=== PATIENT | male | born 1935 | race Caucasian/White ===

== ENCOUNTER 2018-06-17 13:10 | Emergency (ER) | payer MEDICARE, OTHER, SELFPAY ==
[2018-06-17 13:40] VITALS: BP 117/51; PULSE 54; RESP 18; TEMP 37; O2SAT 97
--- NOTE | 2018-06-17 14:00 | W.ED.GENAD ---
Discharge Plan Disposition Patient Disposition: HOME Condition: Stable Discharge Details Chief Complaint: Orthopedic Clinical Impression: Cellulitis of foot, left Primary Care Provider: Osvaldo Coles ED Provider: Vicente Pierce Rogers Meds and New Rx's Prescriptions: New clindamycin HCl 150 mg capsule 450 mg PO TID 7 Days Qty: 63 RF: 0 Continue ALLERPLEX 1 tab PO DAILY RF: 0 ascorbic acid (vitamin C) 1,000 MG tablet 1 tab PO DAILY RF: 0 vitamin B complex 1 EACH capsule 2 ea PO DAILY RF: 0 CHOLOCOL 1 tab PO DAILY RF: 0 CO Q ZYME 30 1 tab PO DAILY RF: 0 PALMETTO-PLUS 1 tab PO DAILY RF: 0 PNEUMA ZYME 1 tab PO DAILY RF: 0 bilberry (vaccinium myrtillus) [bilberry] 500 MG capsule 2 tab PO DAILY RF: 0 Ca carb-Ca gluc-Mg ox-Mg gluco [Calcium Magnesium] 1 EACH tablet 1 ea PO DAILY RF: 0 total male 1 tab PO DAILY RF: 0 losartan 100 MG tablet 100 mg PO DAILY Qty: 90 RF: 4 tamsulosin 0.4 MG capsule 0.4 mg PO DAILY Qty: 30 RF: 11 finasteride 5 MG tablet 5 mg PO DAILY Qty: 30 RF: 2 spironolactone 50 MG tablet 50 mg PO DAILY Qty: 90 RF: 3 Discharge Instructions Additional Instructions: Follow up with your primary care provider in 1-2 weeks return to the emergency department for fevers or severe worsening of pain you can take 1000mg tylenol and 600mg ibuprofen every 6 hours for pain Discharge Data Discharge Physician: Vicente Pierce Medical Decision Making [facility] Narrative Medical decision making narrative: 83 yo male comes in with intermittent pain in his left foot off and on for a few years. He states the pain lasts a few days then goes away, has never had it evaluated. He denies any fevers or chills or trauma or falls. He has a 2x3cm area of erythema that is not tender or significalty warm to touch on the suerprior mid foot. Based on his exam and hx I suspect he likely has had gout, advised nsaids and f/u with pcp, but given his erythema which he states he has never had before will start abx to cover for a cellulitis. Has full rom of the joints so odubt septic joints. no night sweats or systemic symptoms to suggest osteo. no falls or trauma so doubt fracture/dislocation Differential Diagnosis gout, cellulitis, arthritis HPI - General Adult General Mode of arrival: wheelchair. Date/Time Provider Initiated Documentation: 06/17/18 13:46. Limitations to Documentation: no limitations. Information obtained by: patient. History of Present Illness 83 year old M presents to the emergency department with the chief complaint of left foot pain, described as moderate, with intensity rated at 5. Quality is described as aching, and is localized to the left. Patient reports no radiation. Patient started experiencing this year(s) (5) and it has been intermittent. No relieving factors improve symptom(s), No exacerbating factors reported . Patient notes no other symptoms.. Patient did receive the following treatments prior to arrival, none Related Data Home Medications Medication Instructions Recorded Confirmed Allerplex 1 tab PO DAILY 04/26/13 Cholocol 1 tab PO DAILY 04/26/13 Co Q Zyme 30 1 tab PO DAILY 04/26/13 Chocorua-Plus 1 tab PO DAILY 04/26/13 Pneuma Zyme 1 tab PO DAILY 04/26/13 ascorbic acid (vitamin C) 1 tab PO DAILY 04/26/13 vitamin B complex 2 ea PO DAILY 04/26/13 Ca carb-Ca gluc-Mg ox-Mg gluco 1 ea PO DAILY 06/04/14 [Calcium Magnesium] Total Male 1 tab PO DAILY 06/04/14 bilberry (vaccinium myrtillus) 2 tab PO DAILY 06/04/14 [bilberry] Previous Rx's Medication Instructions Recorded clindamycin HCl 450 mg PO TID 7 Days #63 cap 06/17/18 Allergies Allergy/AdvReac Type Severity Reaction Status Date / Time terazosin Allergy Severe SOB; HEAD Unverified 06/17/18 13:42 CONGESTION hydrochlorothiazide Allergy Mild SKIN RASH Unverified 06/17/18 13:42 Penicillins Allergy Mild HIVES Unverified 06/17/18 13:42 triamterene Allergy Mild SKIN RASH Unverified 06/17/18 13:42 omeprazole AdvReac Severe FELT Unverified 06/17/18 13:42 STRANGE General Stated Complaint: Orthopedic HELLEN: 4 Review of Systems Review of Systems All systems reviewed & are unremarkable except as noted in HPI and below Constitutional Denies chills, Denies fever(s) and Denies weakness Eyes Patient Denies loss of vision ENT Denies change in voice Cardiovascular Denies chest pain and Denies dyspnea Respiratory Denies dyspnea Gastrointestinal Denies abdominal pain, Denies nausea and Denies vomiting Genitourinary Denies dysuria Musculoskeletal Denies joint swelling Integumentary/Breasts Reports rash Neurologic Denies loss of vision and Denies weakness Psychiatric Denies depression Endocrine Denies cold intolerance and Denies heat intolerance Allergic/Immunologic Reports urticaria PFSH Family History Mother Essential hypertension Heart disease Multiple sclerosis Father Essential hypertension Heart disease Sister Essential hypertension Thyroid disease Brother Heart disease Neoplasm Brother Essential hypertension COPD (chronic obstructive pulmonary disease) Thyroid disease Smoker Grandfather No problems noted. Grandfather No problems noted. Grandmother No problems noted. Grandmother No problems noted. Brother Heart disease Myocardial infarction Smoker Sister Heart disease Cerebrovascular accident Sister Heart disease Smoker Son Hyperlipidemia Son Diabetes Daughter No problems noted. Daughter Thyroid disease Daughter No problems noted. Social History Smoking/Tobacco Use Status: Never Surgical History Cholecystectomy (~08/2011) Open Carpal Tunnel release Rotator Cuff Repair (~2009) Tonsillectomy and adenoidectomy Exam Const General: no acute distress Orientation: alert HENMT Head: normal to inspection Ears: external ears normal General nose exam: external nose normal Mouth: moist mucous membranes Eyes General: appearance normal, both eyes and all related structures Neck Neck: normal visual inspection Resp Effort & Inspection: normal respiratory effort and able to speak in complete sentences Cardio Rate: regular rate Skin General skin exam: no rashes or lesions noted Neuro General: alert and oriented x3 Extrem General: full ROM, normal capillary refill and other (left superior mid foot has mild erythema with no significant warmth or tenderness, intact sensation, 2+ dp/pt pulses, full rom of the ankle and no leg swelling or calf pain) Psych Mental Status: mental status grossly normal Course Vital Signs Temperature 37 C 06/17/18 13:40 Pulse 54 L 06/17/18 13:40 Respiratory Rate 06/17/18 13:40 Blood Pressure 117/51 L 06/17/18 13:40 Pulse Oximetry 97 06/17/18 13:40 Temperature 37 C 06/17/18 13:40 Pulse 54 L 06/17/18 13:40 Respiratory Rate 18 09/10/18 13:40 Blood Pressure 117/51 L 06/17/18 13:40 Pulse Oximetry 97 06/17/18 13:40
--- NOTE | 2018-06-17 14:03 | ED.GENADUL_ITS ---
Discharge Plan Disposition Patient Disposition: HOME Condition: Stable Discharge Details Chief Complaint: Orthopedic Clinical Impression: Cellulitis of foot, left Primary Care Provider: Osvaldo Coles ED Provider: Vicente Pierce [place] Meds and New Rx's Prescriptions: New clindamycin HCl 150 mg capsule 450 mg PO TID 7 Days Qty: 63 RF: 0 Continue ALLERPLEX 1 tab PO DAILY RF: 0 ascorbic acid (vitamin C) 1,000 MG tablet 1 tab PO DAILY RF: 0 vitamin B complex 1 EACH capsule 2 ea PO DAILY RF: 0 CHOLOCOL 1 tab PO DAILY RF: 0 CO Q ZYME 30 1 tab PO DAILY RF: 0 PALMETTO-PLUS 1 tab PO DAILY RF: 0 PNEUMA ZYME 1 tab PO DAILY RF: 0 bilberry (vaccinium myrtillus) [bilberry] 500 MG capsule 2 tab PO DAILY RF: 0 Ca carb-Ca gluc-Mg ox-Mg gluco [Calcium Magnesium] 1 EACH tablet 1 ea PO DAILY RF: 0 total male 1 tab PO DAILY RF: 0 losartan 100 MG tablet 100 mg PO DAILY Qty: 90 RF: 4 tamsulosin 0.4 MG capsule 0.4 mg PO DAILY Qty: 30 RF: 11 finasteride 5 MG tablet 5 mg PO DAILY Qty: 30 RF: 2 spironolactone 50 MG tablet 50 mg PO DAILY Qty: 90 RF: 3 Discharge Instructions Additional Instructions: Follow up with your primary care provider in 1-2 weeks return to the emergency department for fevers or severe worsening of pain you can take 1000mg tylenol and 600mg ibuprofen every 6 hours for pain Discharge Data Discharge Physician: Vicente Pierce Medical Decision Making [facility] Narrative Medical decision making narrative: 83 yo male comes in with intermittent pain in his left foot off and on for a few years. He states the pain lasts a few days then goes away, has never had it evaluated. He denies any fevers or chills or trauma or falls. He has a 2x3cm area of erythema that is not tender or significalty warm to touch on the suerprior mid foot. Based on his exam and hx I suspect he likely has had gout, advised nsaids and f/u with pcp, but given his erythema which he states he has never had before will start abx to cover for a cellulitis. Has full rom of the joints so odubt septic joints. no night sweats or systemic symptoms to suggest osteo. no falls or trauma so doubt fracture/dislocation Differential Diagnosis gout, cellulitis, arthritis HPI - General Adult General Mode of arrival: wheelchair . Date/Time Provider Initiated Documentation: 06/17/18 13:46 . Limitations to Documentation: no limitations . Information obtained by: patient . History of Present Illness 83 year old M presents to the emergency department with the chief complaint of left foot pain, described as moderate, with intensity rated at 5. Quality is described as aching, and is localized to the left. Patient reports no radiation. Patient started experiencing this year(s) (5) and it has been intermittent. No relieving factors improve symptom(s), No exacerbating factors reported . Patient notes no other symptoms.. Patient did receive the following treatments prior to arrival, none Related Data Home Medications Medication Instructions Recorded Confirmed Allerplex 1 tab PO DAILY 04/26/13 Cholocol 1 tab PO DAILY 04/26/13 Co Q Zyme 30 1 tab PO DAILY 04/26/13 Myra-Plus 1 tab PO DAILY 04/26/13 Pneuma Zyme 1 tab PO DAILY 04/26/13 ascorbic acid (vitamin C) 1 tab PO DAILY 04/26/13 vitamin B complex 2 ea PO DAILY 04/26/13 Ca carb-Ca gluc-Mg ox-Mg gluco 1 ea PO DAILY 06/04/14 [Calcium Magnesium] Total Male 1 tab PO DAILY 06/04/14 bilberry (vaccinium myrtillus) 2 tab PO DAILY 06/04/14 [bilberry] Previous Rx's Medication Instructions Recorded clindamycin HCl 450 mg PO TID 7 Days #63 cap 06/17/18 Allergies Allergy/AdvReac Type Severity Reaction Status Date / Time terazosin Allergy Severe SOB; HEAD Unverified 06/17/18 13:42 CONGESTION hydrochlorothiazide Allergy Mild SKIN RASH Unverified 06/17/18 13:42 Penicillins Allergy Mild HIVES Unverified 06/17/18 13:42 triamterene Allergy Mild SKIN RASH Unverified 06/17/18 13:42 omeprazole AdvReac Severe FELT Unverified 06/17/18 13:42 STRANGE General Stated Complaint: Orthopedic HELLEN: 4 Review of Systems Review of Systems All systems reviewed & are unremarkable except as noted in HPI and below Constitutional Denies chills, Denies fever(s) and Denies weakness Eyes Patient Denies loss of vision ENT Denies change in voice Cardiovascular Denies chest pain and Denies dyspnea Respiratory Denies dyspnea Gastrointestinal Denies abdominal pain, Denies nausea and Denies vomiting Genitourinary Denies dysuria Musculoskeletal Denies joint swelling Integumentary/Breasts Reports rash Neurologic Denies loss of vision and Denies weakness Psychiatric Denies depression Endocrine Denies cold intolerance and Denies heat intolerance Allergic/Immunologic Reports urticaria PFSH Family History Mother Essential hypertension Heart disease Multiple sclerosis Father Essential hypertension Heart disease Sister Essential hypertension Thyroid disease Brother Heart disease Neoplasm Brother Essential hypertension COPD (chronic obstructive pulmonary disease) Thyroid disease Smoker Grandfather No problems noted. Grandfather No problems noted. Grandmother No problems noted. Grandmother No problems noted. Brother Heart disease Myocardial infarction Smoker Sister Heart disease Cerebrovascular accident Sister Heart disease Smoker Son Hyperlipidemia Son Diabetes Daughter No problems noted. Daughter Thyroid disease Daughter No problems noted. Social History Smoking/Tobacco Use Status: Never Surgical History Cholecystectomy (~08/2011) Open Carpal Tunnel release Rotator Cuff Repair (~2009) Tonsillectomy and adenoidectomy Exam Const General: no acute distress Orientation: alert HENMT Head: normal to inspection Ears: external ears normal General nose exam: external nose normal Mouth: moist mucous membranes Eyes General: appearance normal, both eyes and all related structures Neck Neck: normal visual inspection Resp Effort & Inspection: normal respiratory effort and able to speak in complete sentences Cardio Rate: regular rate Skin General skin exam: no rashes or lesions noted Neuro General: alert and oriented x3 Extrem General: full ROM, normal capillary refill and other (left superior mid foot has mild erythema with no significant warmth or tenderness, intact sensation, 2 + dp/pt pulses, full rom of the ankle and no leg swelling or calf pain) Psych Mental Status: mental status grossly normal Course Vital Signs Temperature 37 C 06/17/18 13:40 Pulse 54 L 06/17/18 13:40 Respiratory Rate 06/17/18 13:40 Blood Pressure 117/51 L 06/17/18 13:40 Pulse Oximetry 97 06/17/18 13:40 Temperature 37 C 06/17/18 13:40 Pulse 54 L 06/17/18 13:40 Respiratory Rate 18 09/10/18 13:40 Blood Pressure 117/51 L 06/17/18 13:40 Pulse Oximetry 97 06/17/18 13:40
[2018-06-17 14:24] VITALS: BP 117/51; PULSE 54; RESP 18; TEMP 37; O2SAT 97
--- NOTE | 2018-06-18 10:20 | PDOC.ERCMPRO ---
Care Management Progress Note 06/18/18-Pt seen on 06/17/18 for Left foot cellulitis by Dr. Sarabjit Pierce. F/U request within 1-2 weeks faxed to [facility] as Dr. Sarabjit Coles is Pt.'s PCP.
== END 2018-06-17 15:16 | disposition home or self-care (01) ==
LOC: ER 14:23
PROVIDERS: Emergency Provider Emergency Medicine; PCP Family Medicine
DX: L03.116 Cellulitis of left lower limb (principal)
CPT/HCPCS: 99283

== ENCOUNTER 2018-09-06 15:17 | Outpatient (CLI) | payer MEDICARE, SELFPAY ==
--- NOTE | 2018-09-06 13:34 | DI.RAD_ITS ---
SYMPTOMS/DIAGNOSIS: PAIN LT SHOULDER, M25.512 LEFT SHOULDER: Five views were obtained. There is mild hypertrophic degenerative change of the acromioclavicular and glenohumeral joints. No other significant bony or soft tissue abnormality seen. The bones appear somewhat demineralized.
== END 2018-09-06 15:37 ==
PROVIDERS: PCP Family Medicine; Visit Provider Family Medicine
DX: M25.512 Pain in left shoulder (principal); M19.012 Primary osteoarthritis, left shoulder
CPT/HCPCS: 73030

== ENCOUNTER 2018-12-26 02:28 | Outpatient (CLI) | payer MEDICARE, SELFPAY ==
[2018-12-26 12:38] LABS: CREATININE 1.04 mg/dL (0.70-1.30); Potassium 4.4 mmol/L (3.5-5.1)
[2018-12-26 12:45] LABS: HCT 45.8 % (40.0-50.0); HGB 14.4 g/dL (13.5-17.5); Mean Corp. HGB Concentration 31.4 g/dL (32.0-36.0); Mean Corpuscular Hemoglobin 31.4 pg (27.0-33.0); Mean Corpuscular Volume 99.8 fL (80-95); Mean Platelet Volume 11.1 fL (8.0-11.0); Platelet Count 143 x1000/uL (130-400); RBC 4.59 m/cumm (4.50-6.00); RBC Distribution Width 14.5 % (11.8-14.1)
== END 2018-12-26 02:48 ==
PROVIDERS: PCP Family Medicine; Visit Provider Family Medicine
DX: I10 Essential (primary) hypertension (principal); R53.83 Other fatigue
CPT/HCPCS: 36415; 85027; 82565; 84132

== ENCOUNTER 2019-06-30 10:49 | Outpatient (CLI) | payer MEDICARE, SELFPAY ==
--- NOTE | 2019-06-30 11:17 | DI.RAD_ITS ---
EXAM: XR HIP PELVIS ADULT BL INDICATION: renae hip pain/low back pain, M25.551, M25.552. COMPARISON: LEFT HIP COMPLETE from 10/16/2012 TECHNIQUE: 2D digital imaging was performed. FINDINGS: The bony structures are normally mineralized. There is slight bilateral narrowing of the hip joint, minimal periarticular hypertrophic spurring is demonstrated. There is no evidence of a fracture or di slocation.
== END 2019-06-30 11:09 ==
PROVIDERS: PCP Family Medicine; Visit Provider Family Medicine
DX: M25.551 Pain in right hip (principal); M25.552 Pain in left hip
CPT/HCPCS: 73521

== ENCOUNTER → 2019-10-06 12:52 | Outpatient (BNVA) | payer MEDICARE, SELFPAY | PROVIDERS: PCP Family Medicine; Referring Provider Family Medicine; Visit Provider Nurse Practitioner Gerontology | DX: N40.1 Benign prostatic hyperplasia with lower urinary tract symptoms (principal); N32.81 Overactive bladder; R35.0 Frequency of micturition; R31.29 Other microscopic hematuria; I10 Essential (primary) hypertension | CPT/HCPCS: 81003; 99204; 99215 ==

== ENCOUNTER 2019-10-06 15:30 | Outpatient (REF) | payer MEDICARE, SELFPAY ==
[2019-10-06 18:51] LABS: Bilirubin Negative (Negative); Blood Trace-lysed (Negative); Clarity Clear (Clear); Glucose Negative (Negative); Ketones Negative (Negative); Leukocyte Esterase Negative (Negative); Nitrite Negative (Negative); Urobilinogen 0.2 EU/dL (Up TO 0.2)
[2019-10-06 19:21] LABS: Bacteria Negative HPF (Negative); C & S Indicated? No; Crystals Negative HPF (Negative); Epithelial Cells Negative HPF (Negative); Mucus Negative (Negative); WBC Negative HPF (0-5)
== END 2019-10-06 15:50 ==
LOC: LBN 15:30
PROVIDERS: PCP Family Medicine; Visit Provider Nurse Practitioner Gerontology
DX: R35.0 Frequency of micturition (principal)
CPT/HCPCS: 81003; 81015

== ENCOUNTER 2019-10-30 01:40 | Outpatient (CLI) | payer MEDICARE, SELFPAY ==
[2019-10-30 13:02] LABS: CREATININE 0.96 mg/dL (0.70-1.30)
--- NOTE | 2019-10-30 13:25 | DI.CT_ITS ---
EXAM: CT ABDOMEN AND PELVIS WO/W CLINICAL HISTORY: MICROSCOPIC HEMATURIA R31.29. TECHNIQUE: Imaging Protocol: Axial computed tomography images with coronal and sagittal reformatted images were created and reviewed CONTRAST MATERIAL: Intravenous: Omnipaque 350 Contrast volume:100 mL contrast route:IV - Oral:No COMPARISON: ABD PELVIS WO CONTRAST from 09/07/2011 FINDINGS: On the noncontrast examination, there is no evidence of nephrolithiasis, ureterolithiasis or hydronep hrosis. The lung bases are clear. Post contrast images were then obtained. The liver is normal in size. There are cysts seen in the li maik. There is a peripherally enhancing lesion seen in the region of the caudate lobe. It shows prog ressive enhancement on the delayed images. It is most suggestive of a hepatic hemangioma. No suspic ious hepatic masses are seen. Patient is status post cholecystectomy. There is a fluid attenuation lesion in the gallbladder fossa , which appears to communicate with the common bile duct. It contains calcifications. This is suspi cious for choledocholithiasis. There is no biliary ductal dilatation. Pancreas, spleen and adrenal glands are unremarkable. The kidneys show normal and symmetric enhancement. There are bilateral renal cysts. No solid renal masses are present. The abdominal aorta is of normal caliber. There is mild atherosclerosis present. Incidental note is made of a retroaortic left renal vein. Urinary bladder is intact. The prostate gland is enlarged and impinges upon the base of the urinary bladder. There is diverticulosis of the colon but no evidence of acute diverticulitis. No evidence of bowel o bstruction is present. No evidence of an acute appendicitis is seen. No inflammatory process is pre sent. Incidental note is made of a diverticulum arising from the 2nd portion of the duodenum. No significant abdominal or pelvic adenopathy, ascites or pneumoperitoneum is present. Moderately severe degenerative changes are present in the spine. Delayed images through the urinary collecting system were performed. There is no dilatation of the r enal collecting system. No filling defects are present. No filling defects are seen in the urinary bladder. IMPRESSION: 1. No evidence of nephrolithiasis or hydronephrosis. No evidence of a renal mass. 2. Enlarged prostate gland impinging upon the base of the urinary bladder. 3. Status post cholecystectomy. Fluid attenuation collection in the gallbladder fossa, which appears to communicate with the bile ducts. There are calcifications internally. The findings are suspicio us for choledocholithiasis. There is no biliary ductal dilatation. 4. Peripherally enhancing lesion in the caudate lobe most suggestive of a hepatic hemangioma. 5. Colonic diverticulosis but no evidence of acute diverticulitis. DATA REPOSITORY: All CT scans at this facility are submitted to the National Radiology Data Registry (NRDR) Dose Index Registry (DIR) with the [employer] [place] [employer] (A[employer]). RADIATION OPTIMIZATION: All CT scans at this facility use at least one of these dose optimization te chniques: automated exposure control; mA and/or kV adjustment per patient size (includes targeted exa ms where dose is matched to clinical indication); or iterative reconstruction.
[2019-10-30] MEDS: Omnipaque 350 MG/ML 100 ML BTL IJ (13:41)
[2019-10-30] MEDS: Normal Saline - Diluent 50 ML VIAL IV ×2 (13:43)
== END 2019-10-30 02:00 ==
PROVIDERS: PCP Family Medicine; Visit Provider Nurse Practitioner Gerontology
DX: R31.29 Other microscopic hematuria (principal); K76.89 Other specified diseases of liver; D18.03 Hemangioma of intra-abdominal structures; Z90.49 Acquired absence of other specified parts of digestive tract; N40.0 Benign prostatic hyperplasia without lower urinary tract symptoms; K80.50 Calculus of bile duct without cholangitis or cholecystitis without obstruction; K57.30 Diverticulosis of large intestine without perforation or abscess without bleeding
CPT/HCPCS: 74178; 82565; J3490

== ENCOUNTER → 2019-11-10 13:24 | Outpatient (BNVA) | payer MEDICARE, SELFPAY | PROVIDERS: PCP Family Medicine; Referring Provider Family Medicine; Visit Provider Nurse Practitioner Gerontology | DX: N32.81 Overactive bladder (principal); N40.1 Benign prostatic hyperplasia with lower urinary tract symptoms; R31.29 Other microscopic hematuria | CPT/HCPCS: 99213 ==

== ENCOUNTER 2020-02-10 12:45 | Outpatient (REF) | payer MEDICARE, SELFPAY ==
[2020-02-10 22:28] LABS: Potassium 4.2 mmol/L (3.5-5.1)
== END 2020-02-10 13:05 ==
LOC: LBN 12:45
PROVIDERS: PCP Family Medicine; Visit Provider Family Medicine
DX: I10 Essential (primary) hypertension (principal)
CPT/HCPCS: 84132

== ENCOUNTER → 2020-05-10 13:26 | Outpatient (BNVA) | payer MEDICARE, SELFPAY | PROVIDERS: PCP Family Medicine; Referring Provider Family Medicine; Visit Provider Nurse Practitioner Gerontology | DX: N40.0 Benign prostatic hyperplasia without lower urinary tract symptoms (principal) | CPT/HCPCS: 99213 ==

== ENCOUNTER 2020-08-23 01:05 | Outpatient (CLI) | payer MEDICARE, SELFPAY ==
[2020-08-23 13:03] LABS: Anion Gap 7.3 mmol/L (3-11); BUN 19 mg/dL (7-18); CO2 28.7 mmol/L (21.0-32.0); Calcium 8.6 mg/dL (8.5-10.1); Chloride 104 mmol/L (98-107); Glucose 93 mg/dL (74-106); Potassium 4.1 mmol/L (3.5-5.1); Sodium 140 mmol/L (136-145)
== END 2020-08-23 01:25 ==
PROVIDERS: PCP Family Medicine; Visit Provider Family Medicine
DX: E87.1 Hypo-osmolality and hyponatremia (principal)
CPT/HCPCS: 36415; 80048

== ENCOUNTER 2021-03-16 02:43 | Outpatient (CLI) | payer MEDICARE, SELFPAY ==
[2021-03-16 13:03] LABS: TSH (W/Ref FT4) 3.68 uIU/mL (0.36-3.74); Vitamin B12 964 pg/mL (193-986)
== END 2021-03-16 02:44 | disposition home or self-care (01) ==
LOC: LBO 02:43
PROVIDERS: PCP Family Medicine; Visit Provider Family Medicine
DX: E03.9 Hypothyroidism, unspecified (principal); R41.3 Other amnesia; R26.89 Other abnormalities of gait and mobility; I10 Essential (primary) hypertension
CPT/HCPCS: 36415; 82607; 84443

== ENCOUNTER 2021-05-12 10:45 | Outpatient (CLI) | payer MEDICARE, SELFPAY ==
--- NOTE | 2021-05-12 10:30 | DI.RAD_ITS ---
Exam(s) XR LUMBAR SPINE COMPLETE EXAM: XR LUMBAR SPINE COMPLETE CLINICAL HISTORY: fall, injury M54.5 LOW BACK PAIN. TECHNIQUE: 2D digital imaging was performed. COMPARISON: No exams were available for comparison FINDINGS: There is no evidence of fracture or listhesis in the lumbar spine. Slight height loss of T12 is note d but this has a chronic appearance. There is multilevel disc space narrowing at the lower 3 levels in the lumbar spine. Moderate disc space narrowing at the other levels. Multilevel anterior osseous lipping noted. No listhesis. Degenerative changes in the facet joints at multiple levels. Sacroil iac joints appear age-appropriate. IMPRESSION: No acute fractures evident. Multilevel chronic degenerative disc disease. No listhesis. DATA REPOSITORY: RADIATION DOSE DELIVERED:
== END 2021-05-12 11:05 ==
PROVIDERS: PCP Family Medicine; Visit Provider Physician Assistant
DX: G89.11 Acute pain due to trauma (principal); M54.5 Low back pain; M51.36 Other intervertebral disc degeneration, lumbar region; W19.XXXA Unspecified fall, initial encounter; Y99.8 Other external cause status
CPT/HCPCS: 72110

== ENCOUNTER 2022-03-28 00:55 | Outpatient (CLI) | payer MEDICARE, SELFPAY ==
[2022-03-28 12:28] LABS: HCT 42.2 % (40.0-50.0); HGB 13.6 g/dL (13.5-17.5); MCH 31.9 pg (27.0-33.0); MCHC 32.2 % (32.0-36.0); MCV 99 fL (80-95); MPV 10.4 fL (8.0-11.0); Platelet Count 137 10^3/uL (130-400); RBC 4.26 10^6/uL (4.36-5.78); RDW 14.4 % (11.8-14.1); WBC 6.02 10^3/uL (4.4-10.8)
[2022-03-28 13:30] LABS: Iron 83 ug/dL (65-175)
[2022-03-28 13:33] LABS: Potassium 4.1 mmol/L (3.5-5.1)
== END 2022-03-28 00:56 | disposition home or self-care (01) ==
LOC: LOS 00:55
PROVIDERS: PCP Family Medicine; Visit Provider Family Medicine
DX: D64.9 Anemia, unspecified (principal); I10 Essential (primary) hypertension; R53.83 Other fatigue
CPT/HCPCS: 36415; 85027; 82565; 83540; 84132

== ENCOUNTER 2022-09-19 11:05 | Outpatient (CLI) | payer MEDICARE, SELFPAY ==
[2022-09-19 12:36] LABS: Potassium 4.2 mmol/L (3.5-5.1)
== END 2022-09-19 11:06 | disposition home or self-care (01) ==
LOC: LOS 11:06
PROVIDERS: PCP Family Medicine; Visit Provider Family Medicine
DX: I10 Essential (primary) hypertension (principal)
CPT/HCPCS: 36415; 84132

== ENCOUNTER 2023-03-26 11:15 | Outpatient (CLI) | payer MEDICARE, SELFPAY ==
[2023-03-26 12:32] LABS: Anion Gap 7.7 mmol/L (3-11); BUN 17 mg/dL (7-18); CO2 27.3 mmol/L (21.0-32.0); CREATININE 1.1 mg/dL (0.70-1.30); Calcium 8.9 mg/dL (8.5-10.1); Chloride 104 mmol/L (98-107); Estimated GFR 65.38 (mL/min/1.73m2); Glucose 100 mg/dL (74-106); Potassium 4.3 mmol/L (3.5-5.1); Sodium 139 mmol/L (136-145)
== END 2023-03-26 11:16 | disposition home or self-care (01) ==
LOC: LOS 11:15
PROVIDERS: PCP Family Medicine; Referring Provider Family Medicine; Visit Provider Family Medicine
DX: E87.1 Hypo-osmolality and hyponatremia (principal)
CPT/HCPCS: 36415; 80048

== ENCOUNTER 2023-07-09 04:13 | Outpatient (CLI) | payer MEDICARE, SELFPAY ==
[2023-07-09 12:58] LABS: Potassium 4.3 mmol/L (3.5-5.1)
== END 2023-07-09 04:14 | disposition home or self-care (01) ==
LOC: LOS 04:14
PROVIDERS: PCP Family Medicine; Visit Provider Family Medicine
DX: I10 Essential (primary) hypertension (principal)
CPT/HCPCS: 36415; 84132

== ENCOUNTER 2023-08-09 13:50 | Outpatient (REF) | payer MEDICARE, SELFPAY ==
[2023-08-09 21:17] LABS: Bilirubin Negative (Negative); Blood Trace-intact (Negative); Clarity Clear (Clear); Glucose Negative (Negative); Ketones Negative (Negative); Leukocyte Esterase Negative (Negative); Nitrite Negative (Negative); Specific Gravity 1.015 (1.005-1.025); Urobilinogen 0.2 mg/dL (Up to 0.2)
[2023-08-09 21:20] LABS: Bacteria Rare HPF (Negative); C & S Indicated? Yes; Casts Negative LPF (Negative); Crystals Negative HPF (Negative); Epithelial Cells Rare HPF (Negative); Mucus Negative (Negative)
== END 2023-08-09 13:51 | disposition home or self-care (01) ==
LOC: LBN 13:50
PROVIDERS: PCP Family Medicine; Visit Provider Family Medicine
DX: R53.83 Other fatigue (principal)
CPT/HCPCS: 81003; 81015; 87086

== ENCOUNTER 2023-08-15 02:29 | Outpatient (CLI) | payer MEDICARE, SELFPAY ==
[2023-08-15 09:44] LABS: Anion Gap 5.4 mmol/L (3-11); BUN 18 mg/dL (7-18); CO2 28.6 mmol/L (21.0-32.0); CREATININE 1.1 mg/dL (0.70-1.30); Chloride 103 mmol/L (98-107); Estimated GFR 65.38 (mL/min/1.73m2); Glucose 96 mg/dL (74-106); Potassium 4.3 mmol/L (3.5-5.1); Sodium 137 mmol/L (136-145)
== END 2023-08-15 02:30 | disposition home or self-care (01) ==
LOC: LBO 02:29
PROVIDERS: PCP Family Medicine; Visit Provider Family Medicine
DX: E87.1 Hypo-osmolality and hyponatremia (principal)
CPT/HCPCS: 36415; 80048

== ENCOUNTER 2023-11-13 11:34 | Outpatient (CLI) | payer MEDICARE, SELFPAY ==
[2023-11-13 12:30] LABS: HGB 13.8 g/dL (13.5-17.5); MCH 32.4 pg (27.0-33.0); MCHC 32.9 % (32.0-36.0); MCV 99 fL (80-95); MPV 9.5 fL (8.0-11.0); Platelet Count 164 10^3/uL (130-400); RBC 4.26 10^6/uL (4.36-5.78); RDW 13.5 % (11.8-14.1); RDW-SD 49.3 fL; WBC 7.53 10^3/uL (4.4-10.8)
[2023-11-13 13:19] LABS: Iron 90 ug/dL (65-175)
== END 2023-11-13 11:35 | disposition home or self-care (01) ==
LOC: LOS 11:34
PROVIDERS: PCP Family Medicine; Referring Provider Family Medicine; Visit Provider Family Medicine
DX: D64.9 Anemia, unspecified (principal); R53.83 Other fatigue
CPT/HCPCS: 36415; 85027; 83540

== ENCOUNTER 2024-02-22 14:11 | Emergency (ER) | payer MEDICARE, SELFPAY ==
[2024-02-22] VITALS (28 sets, daily range): BP systolic 117–168; BP diastolic 65–79; PULSE 75–97; RESP 16–28; TEMP 36.1; O2SAT 91–96
--- NOTE | 2024-02-22 14:15 | DI.RAD_ITS ---
Exam(s) XR PELVIS AP EXAM: XR PELVIS AP CLINICAL HISTORY: rolled riding mower. TECHNIQUE: 2D digital imaging was performed.Two images were obtained. COMPARISON: No exams were available for comparison FINDINGS: BONES: No acute fracture is present. No bony destructive lesion is seen. JOINTS: No dislocation present. There are degenerative changes seen in the lower lumbar spine. SOFT TISSUE: Normal. IMPRESSION: No acute fracture or dislocation. DATA REPOSITORY: RADIATION DOSE DELIVERED:
--- NOTE | 2024-02-22 14:15 | RT.EKG_ITS ---
APPROVED REPORT Exam: Resting ECG Reason for Exam: confusion Patient Location: E HR:83 bpm ECG Measurements Heart Rate 83 AXIS MO 348 P 37 QRSd 107 QRS -43 QT 350 T 105 QTc 411 Conclusion Sinus rhythm...normal P axis, V-rate 60- 99 Prolonged MO interval...MO >220, V-rate 50- 90 Left anterior fascicular block...axis(240,-40), init forces inf Probable LVH with secondary repol abnrm...multiple LVH criteria sinus rhtyhm, left axis, non ischemic
--- NOTE | 2024-02-22 14:15 | DI.RAD_ITS ---
Exam(s) XR HAND LT COMPLETE EXAM: XR HAND LT COMPLETE CLINICAL HISTORY: traumatic amputations of fingers. TECHNIQUE: 2D digital imaging was performed of the left hand. Three views were obtained. AP, later al and oblique views were obtained. COMPARISON: No exams were available for comparison FINDINGS: BONES: There has been an amputation of the 5th finger at the level of the base of the middle phalanx. There has been an amputation of the ring finger at the level of the neck of the proximal phalanx. There has been an amputation of the middle finger at the level of the base of the middle phalanx. Th ere is a comminuted intra-articular fracture involving the distal half of the middle phalanx of the i ndex finger. The distal aspect of a finger is present it includes the head of the middle phalanx and the distal phalanx. There is also a bony fragment interposed between the proximal phalanges of the middle and ring fingers. Several osseous fragments are seen in the soft tissues overlying the finger s. There is a chronic deformity of the scaphoid which may represent an old nonunited fracture. JOINTS: No dislocation present. There are degenerative changes seen at the 1st CMC joint. SOFT TISSUE: Normal. IMPRESSION: 1. Amputations involving the middle, ring and little fingers as described above. 2. Comminuted intra-articular fracture of the middle phalanx of the index finger. DATA REPOSITORY: RADIATION DOSE DELIVERED:
--- NOTE | 2024-02-22 14:22 | DI.RAD_ITS ---
Exam(s) XR PORTABLE CHEST AP EXAM: XR PORTABLE CHEST AP CLINICAL HISTORY: rolled riding mower TECHNIQUE: 2D digital imaging was performed of the chest. One image was obtained. An AP view was ob tained. COMPARISON: CR XR shoulder LT complete 2+V from 09/06/2018 FINDINGS: MEDIASTINUM: Normal. HEART: Normal. PULMONARY VASCULATURE: Normal. LUNGS: Clear. PLEURAL SPACE: No pleural effusion or pneumothorax. BONE:Within normal limits for the patient's age. OTHER FINDINGS:Normal. IMPRESSION: No acute pulmonary findings. DATA REPOSITORY: RADIATION DOSE DELIVERED:
--- NOTE | 2024-02-22 14:22 | W.ED.GENAD ---
Discharge Plan Disposition Patient Disposition: Transfer-Acute Inpatient Care Specific Acute Inpt Facility: [facility] Condition: Stable Discharge Details Chief Complaint: Trauma Clinical Impression: Amputation, finger, traumatic Primary Care Provider: Osvaldo Coles ED Provider: Neal Patel Home Meds and New Rx's Prescriptions: No Action losartan 100 mg tablet 100 mg PO DAILY Qty: 90 4RF spironolactone [Aldactone] 50 mg tablet 50 mg PO DAILY Qty: 90 3RF ICaps AREDS2 (copper citrate) 250 mg-200 unit -12.5 mg-1 mg tablet 1 tab PO BID donepezil 5 mg tablet 5 mg PO DAILY Qty: 90 3RF HPI General Date/Time Provider Initiated Documentation: 02/22/24 14:18. HPI Narrative: 89-year-old male brought in by EMS after rolling his riding mower, traumatic amputation of multiple fingers of his left hand. Patient is right-hand dominant. Patient has baseline dementia. Fentanyl given in field for analgesia with affect. Related Data Home Medications Medication Instructions Recorded Confirmed losartan 100 mg tablet 100 mg PO DAILY #90 tab-caps 08/09/23 02/22/24 spironolactone 50 mg tablet 50 mg PO DAILY #90 tabs 08/09/23 02/22/24 (Aldactone) vit C 250 mg-vit E 200 unit-zinc 1 tab PO BID 08/09/23 02/22/24 12.5 mg-copper 1 [id number] tablet (ICaps AREDS2 (copper citrate)) donepezil 5 mg tablet 5 mg PO DAILY #90 tabs 02/09/24 02/22/24 Previous Rx's Medication Instructions Recorded losartan 100 mg tablet 100 mg PO DAILY #90 tab-caps 08/09/23 spironolactone 50 mg tablet 50 mg PO DAILY #90 tabs 08/09/23 (Aldactone) donepezil 5 mg tablet 5 mg PO DAILY #90 tabs 02/09/24 Allergies Allergy/AdvReac Type Severity Reaction Status Date / Time terazosin Allergy Severe SOB; HEAD Verified 02/22/24 15:03 CONGESTION hydrochlorothiazide Allergy Mild SKIN RASH Verified 02/22/24 15:03 Penicillins Allergy Mild HIVES Verified 02/22/24 15:03 triamterene Allergy Mild SKIN RASH Verified 02/22/24 15:03 omeprazole AdvReac Severe FELT Verified 02/22/24 15:03 STRANGE General Stated Complaint: Trauma HELLEN: 2 Review of Systems Narrative: Review of Systems Constitutional: negative Eyes: negative ENT: negative Cardiovascular: negative Respiratory: negative Gastrointestinal: negative : negative Musculoskeletal: Traumatic amputation of multiple fingers left hand Skin: negative Neurologic: negative Psych: negative Exam Narrative Exam Narrative: Physical Examination General: alert, awake, cooperative, resting comfortably, no acute distress HEENT: normocephalic, atraumatic; PERRL, EOM intact, conjunctiva normal; no nasal discharge; moist mucous membranes, oral and pharyngeal mucosa normal, tolerating secretions Neck: supple, trachea midline; full ROM Chest: normal to inspection Respiratory: normal respiratory effort, speaking in full sentences, clear to auscultation, no wheezing, rales or rhonchi Cardiac: regular rate, regular rhythm, S1S2 intact, no murmurs rubs or gallops GI: abdomen soft, non-tender, non-distended; no palpable mass or hepatosplenomegaly Skin: See extremity Neuro: Alert and interactive, following commands Extremities: Traumatic amputation of third fourth and fifth finger left hand, at the PIP joints, with remnants of macerated soft tissue attached; partial amputation distal second digit volar aspect; radial pulse intact Psych: Appropriate mood and affect Course Vital Signs Vital signs: Vital Signs Temperature 36.1 C L 02/22/24 14:13 Pulse 88 02/22/24 14:13 Respiratory Rate 18 02/22/24 14:13 Pulse Oximetry 93 02/22/24 14:13 Temperature 36.1 C L 02/22/24 14:13 Temperature Source Tympanic 02/22/24 14:13 Pulse 88 02/22/24 14:13 Respiratory Rate 18 02/22/24 14:13 Blood Pressure 168/68 H 02/22/24 14:20 Blood Pressure Position Sitting 02/22/24 14:13 Pulse Oximetry 93 02/22/24 14:13 Oxygen Delivery Method Room Air 02/22/24 14:13 Oxygen Flow Rate 0 02/22/24 14:13 Pain Level 8 02/22/24 14:13 Medical Decision Making 89-year-old male history of dementia presents brought in by EMS after rolling his riding mower, resulting in amputation of third fourth and fifth digit of left hand, partial amputation distal aspect of second digit of left hand, third fourth and fifth digits amputated at PIP joint with some remnant macerated soft tissue, partial amputation of second digit volar aspect with distal phalanx; patient given fentanyl and route currently resting comfortably, hemodynamically stable no signs of thoracoabdominal or cranial trauma. No neurologic deficits. Will obtain IV access, will administer clindamycin as patient has penicillin allergy, will update Tdap, will continue with analgesia as needed, will obtain x-ray of hand, will also obtain screening chest x-ray and pelvic x-ray given rollover injury. Patient has no blood thinners on his med list. Patient is alert interactive although not oriented to time patient is oriented to self and place. Will attempt proximal block of hand in order to properly irrigate wound which is covered in organic material from lawn. Team making contact with hand surgery at [facility] for likely transfer 16:00 Ring block applied to second third fourth and fifth digits, wounds irrigated with sterile saline, wet to dry dressing applied to distal stumps. Had extensive conversation with patient and patient's regarding the unsalvageable nature of the distal digits that were brought in with the patient given their macerated state. Discussed primary goals of preventing infection and salvaging function of patient's second digit. Patient and family amenable to operative intervention. 16: 24 discussed case with Gretta of the orthopedic surgical team/hand surgery team at [facility], was asked to relay clinical pictures to her email account which were sent; I was asked if I were comfortable performing bedside ED revision of affected fingers. I relayed my concern that patient would benefit from operative washout and revision given macerated nature of wound, devitalized tissue and extensive organic material involving these wounds. Patient accepted for ED to ED transfer, accepting physician Dr. Jolley. Family and patient amenable to transfer and further care. Will attempt to remove ring at bedside with ring cutter. 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 Mitral valve regurgitation (Chronic) 06/22 echo severe MR and LAE (yearly [facility] cardiology f/u) 08/19 echo normal except mod MR Nasal polyp (Chronic 03/09/16) Osteoarthritis (Chronic 06/04/14) Sensorineural hearing loss, 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) [facility] Status post tonsillectomy and adenoidectomy (Acute) Status post rotator cuff repair (Acute) Status post carpal tunnel release (Acute) 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) Chronic bilateral low back pain without sciatica (Acute) OAB (overactive bladder) (Acute) Microscopic hematuria (Acute) Arthritis, midfoot (Acute) Bilateral foot pain (Acute) Essential hypertension (Acute) Gait disorder (Acute) COVID-19 (Acute) Positive ~03/07/22 Surgical History Tonsillectomy and adenoidectomy Rotator Cuff Repair (~2009) Open Carpal Tunnel release left Cholecystectomy (~08/2011) complicated by post op infection Family History Mother Essential hypertension Heart disease Multiple sclerosis Father Essential hypertension Heart disease Sister Essential hypertension Thyroid disease Brother Heart disease Neoplasm [place] Brother Essential hypertension COPD (chronic obstructive pulmonary disease) Thyroid disease Smoker Grandfather No problems noted. Grandfather No problems noted. Grandmother No problems noted. Grandmother No problems noted. Brother Heart disease Myocardial infarction Smoker Sister Heart disease Stroke Sister Heart disease Smoker Son Hyperlipidemia Son Diabetes Daughter No problems noted. Daughter Thyroid disease Daughter No problems noted. Social History Smoking/Tobacco Use Status: Never Smoking risk assessment performed?: Yes Alcohol Intake: never Drug use: Never Substance use type: does not use Household members: other Details: 2 Duration: 15-30 minutes/day Frequency: 3-4 times per week Viviana/Episcopal: Jainism Special viviana needs: No Do you feel safe at home: Yes Do you feel safe in your relationship?: Yes
[2024-02-22 14:33] LABS: Abs Immature Grans 0.02 10^3/uL (0.0-0.06); Absolute Basophil Count 0.03 10^3/uL (0.0-0.2); Absolute Eosinophil Count 0.12 10^3/uL (0.0-0.7); Absolute Lymphocyte Count 1.12 10^3/uL (1.2-3.4); Absolute Monocyte Count 0.54 10^3/uL (0.1-0.8); Absolute Neutrophil Count 4.31 10^3/uL (1.2-6.7); Basophils % 0.5 %; HCT 40.7 % (40.0-50.0); HGB 13.4 g/dL (13.5-17.5); Immature Grans % 0.3 %; Lymphocytes % 18.2 %; MCH 32.8 pg (27.0-33.0); MCHC 32.9 % (32.0-36.0); MCV 100 fL (80-95); MPV 8.9 fL (8.0-11.0); Monocytes % 8.8 %; Neutrophils % 70.2 %; Platelet Count 150 10^3/uL (130-400); RBC 4.08 10^6/uL (4.36-5.78); RDW 13.9 % (11.8-14.1); RDW-SD 50.9 fL; WBC 6.14 10^3/uL (4.4-10.8)
[2024-02-22] MEDS: CLINDAMYCIN 600 MG/50 ML BAG 100 MG IVPB (14:40)
[2024-02-22 14:50] LABS: INR 1.1 (0.9-1.1); PTT Activated 24.3 sec (23.6-32.8); Prothrombin Time 11.2 sec (9.1-11.1)
[2024-02-22 14:52] LABS: ALT 23 U/L (16-63); AST 17 U/L (15-37); Albumin 3.5 g/dL (3.4-5.0); Alkaline Phosphatase 66 U/L (46-116); Anion Gap 8.8 mmol/L (3-11); BUN 16 mg/dL (7-18); Bilirubin, Total 0.6 mg/dL (0.2-1.0); CO2 27.2 mmol/L (21.0-32.0); CREATININE 1.2 mg/dL (0.70-1.30); Calcium 8.6 mg/dL (8.5-10.1); Chloride 101 mmol/L (98-107); Estimated GFR 58.53 (mL/min/1.73m2); Glucose 146 mg/dL (74-106); Sodium 137 mmol/L (136-145); Total Protein 6.6 g/dL (6.4-8.2)
[2024-02-22] MEDS: Lidocaine 1% Multi-Dose 20 ML VIAL IJ (15:04)
[2024-02-22] MEDS: fentaNYL 100 MCG/2 ML VIAL 25 MCG IVP (16:11)
[2024-02-22] MEDS: ACETAMINOPHEN 1,000 MG/100 ML BTL 400 MG IVPB (16:16)
[2024-02-22] MEDS: HYDROmorphone 2 MG/ML SYR 0.5 MG IVP (16:34)
== END 2024-02-22 17:13 | disposition short-term general hospital (02) ==
PROVIDERS: Emergency Provider Emergency Medicine; PCP Family Medicine
DX: S68.127A Partial traumatic metacarpophalangeal amputation of left little finger, initial encounter (principal); S68.125A Partial traumatic metacarpophalangeal amputation of left ring finger, initial encounter; S68.123A Partial traumatic metacarpophalangeal amputation of left middle finger, initial encounter; S62.621B Displaced fracture of middle phalanx of left index finger, initial encounter for open fracture; F03.90 Unspecified dementia, unspecified severity, without behavioral disturbance, psychotic disturbance, mood disturbance, and anxiety; I10 Essential (primary) hypertension; I44.4 Left anterior fascicular block; W30.89XA Contact with other specified agricultural machinery, initial encounter; Y93.H2 Activity, gardening and landscaping; Y92.017 Garden or yard in single-family (private) house as the place of occurrence of the external cause; Z23 Encounter for immunization
CPT/HCPCS: 36415; 80053; 90471; 90715; 93005; 96365; 96375; 99285; 71045; 72170; 73130; 85025; 85610; 85730; 93010; J0131; J0737; J1170; J2003; J3010

== ENCOUNTER 2024-03-17 21:41 | Outpatient (REF) | payer MEDICARE, SELFPAY ==
[2024-03-17 21:34] LABS: Bilirubin Negative (Negative); Blood Negative (Negative); Clarity Clear (Clear); Glucose Negative (Negative); Ketones Negative (Negative); Leukocyte Esterase Negative (Negative); Nitrite Negative (Negative); Urobilinogen 0.2 mg/dL (Up to 0.2)
== END 2024-03-17 21:42 | disposition home or self-care (01) ==
LOC: LBN 21:41
PROVIDERS: PCP Family Medicine; Visit Provider Family Medicine
DX: R35.0 Frequency of micturition (principal)
CPT/HCPCS: 81003

== ENCOUNTER 2024-05-22 15:59 | Outpatient (CLI) | payer MEDICARE, SELFPAY ==
--- NOTE | 2024-05-22 15:30 | DI.RAD_ITS ---
Exam(s) XR FINGER LT INDEX EXAM: XR FINGER LT INDEX CLINICAL HISTORY: S/P PINNING L INDEX FINGER. TECHNIQUE: 2D digital imaging was performed. COMPARISON: CR XR HAND LT COMPLETE from 02/22/2024 and images earlier today. FINDINGS: 3 views Compared to earlier today there has been interval removal of 2 of the 3 longtitudinally orientated K- wires in the 2nd-index finger and the horizontal wire through the fracture in the middle phalanx [place] ins. Resection of the DIP joint again noted. PIP joint appears unremarkable. There is no evidence of osteomyelitis. Adjacent 3rd finger included in the field of view exhibits amputation of the middle and distal phalan ges. IMPRESSION: As above. DATA REPOSITORY: RADIATION DOSE DELIVERED:
--- NOTE | 2024-05-22 15:43 | DI.RAD_ITS ---
Exam(s) XR HAND LT COMPLETE EXAM: XR HAND LT COMPLETE CLINICAL HISTORY: PIN REMOVAL L INDEX FINGER. TECHNIQUE: 2D digital imaging was performed. COMPARISON: CR XR HAND LT COMPLETE from 02/22/2024 FINDINGS: 3 views There have been interval amputation the level of the distal aspects of the distal phalanges of the 3r d, 4th, and 5th fingers. There is a nondisplaced oblique fracture line in the remaining proximal pha lanx of the 4th-ring finger. There are 3 longitudinal K-wires along the phalanges of the 2nd-index finger. There has been resecti on of the DIP joint of this finger. There is also a horizontal K-wire across healing fracture site i n the middle phalanx of the 2nd-index finger also noted. No significant acute osseous findings in th e thumb. Some degenerative changes are noted at the thumb articulations. There are no erosions and there is no evidence of osteomyelitis. IMPRESSION: As above. DATA REPOSITORY: RADIATION DOSE DELIVERED:
== END 2024-05-22 16:00 | disposition home or self-care (01) ==
LOC: DIORS 16:01
PROVIDERS: PCP Family Medicine; Referring Provider Family Medicine; Visit Provider Student in an Organized Health Care Education/Training Program
DX: S68.012A Complete traumatic metacarpophalangeal amputation of left thumb, initial encounter (principal); S68.113A Complete traumatic metacarpophalangeal amputation of left middle finger, initial encounter; S68.115A Complete traumatic metacarpophalangeal amputation of left ring finger, initial encounter; S68.117A Complete traumatic metacarpophalangeal amputation of left little finger, initial encounter; X58.XXXA Exposure to other specified factors, initial encounter
CPT/HCPCS: 99215; 73130; 73140

== ENCOUNTER 2024-08-01 09:47 | Outpatient (CLI) | payer MEDICARE, SELFPAY ==
[2024-08-01 12:51] LABS: HCT 45.3 % (40.0-50.0); HGB 14.3 g/dL (13.5-17.5); MCH 31.6 pg (27.0-33.0); MCHC 31.6 % (32.0-36.0); MCV 100 fL (80-95); MPV 9.7 fL (8.0-11.0); Platelet Count 157 10^3/uL (130-400); RBC 4.53 10^6/uL (4.36-5.78); RDW 14.3 % (11.8-14.1); RDW-SD 53.5 fL; WBC 6.11 10^3/uL (4.4-10.8)
[2024-08-01 13:00] LABS: Potassium 4.1 mmol/L (3.5-5.1)
[2024-08-01 13:32] LABS: Iron 76 ug/dL (65-175)
== END 2024-08-01 09:48 | disposition home or self-care (01) ==
LOC: LOS 09:49
PROVIDERS: PCP Family Medicine; Visit Provider Family Medicine
DX: R53.83 Other fatigue (principal); I10 Essential (primary) hypertension; D64.9 Anemia, unspecified
CPT/HCPCS: 36415; 85027; 83540; 84132

== ENCOUNTER 2024-08-22 15:19 | Outpatient (REF) | payer MEDICARE, SELFPAY ==
[2024-08-22 21:24] LABS: Bilirubin Negative (Negative); Blood Negative (Negative); Clarity Clear (Clear); Glucose Negative (Negative); Ketones Negative (Negative); Leukocyte Esterase Negative (Negative); Nitrite Negative (Negative); Urobilinogen 0.2 mg/dL (Up to 0.2)
== END 2024-08-22 15:20 | disposition home or self-care (01) ==
LOC: LBN 15:19
PROVIDERS: PCP Family Medicine; Visit Provider Family Medicine
DX: R39.15 Urgency of urination (principal); R32 Unspecified urinary incontinence; R82.89 Other abnormal findings on cytological and histological examination of urine
CPT/HCPCS: 81003

== ENCOUNTER 2025-01-27 10:18 | Outpatient (CLI) | payer MEDICARE, SELFPAY ==
[2025-01-27 12:49] LABS: CREATININE 1.2 mg/dL (0.70-1.30); Estimated GFR 58.17 (mL/min/1.73m2); Potassium 4.2 mmol/L (3.5-5.1)
[2025-01-27 12:50] LABS: Hemoglobin A1C 5.1 % (<5.7)
== END 2025-01-27 10:19 | disposition home or self-care (01) ==
PROVIDERS: PCP Family Medicine; Visit Provider Family Medicine
DX: I10 Essential (primary) hypertension (principal); R73.9 Hyperglycemia, unspecified
CPT/HCPCS: 36415; 82565; 83036; 84132

== ENCOUNTER 2025-04-08 04:34 | Outpatient (CLI) | payer MEDICARE, SELFPAY ==
[2025-04-08 12:25] LABS: Abs Immature Grans 0.01 10^3/uL (0.0-0.06); HCT 46.8 % (40.0-50.0); HGB 15.1 g/dL (13.5-17.5); Immature Grans % 0.2 %; MCH 31.9 pg (27.0-33.0); MCHC 32.3 % (32.0-36.0); MCV 99 fL (80-95); MPV 9.9 fL (8.0-11.0); Platelet Count 134 10^3/uL (130-400); RBC 4.74 10^6/uL (4.36-5.78); RDW 14.1 % (11.8-14.1); RDW-SD 51.5 fL; WBC 6.47 10^3/uL (4.4-10.8)
[2025-04-08 12:32] LABS: Iron 82 ug/dL (65-175); Total Iron Binding Capacity 265 ug/dL (250-450)
[2025-04-08 13:12] LABS: ALT 26 U/L (16-63); AST 15 U/L (15-37); Albumin 3.6 g/dL (3.4-5.0); Alkaline Phosphatase 71 U/L (46-116); Anion Gap 4.0 mmol/L (3-11); BUN 14 mg/dL (7-18); Bilirubin, Total 0.7 mg/dL (0.2-1.0); CO2 31.0 mmol/L (21.0-32.0); Calcium 9.2 mg/dL (8.5-10.1); Chloride 104 mmol/L (98-107); Estimated GFR 58.17 (mL/min/1.73m2); Ferritin 79 ng/mL (26-388); Glucose 94 mg/dL (74-106); Potassium 4.1 mmol/L (3.5-5.1); Sodium 139 mmol/L (136-145); TSH (W/Ref FT4) 3.87 uIU/mL (0.36-3.74); Total Protein 6.8 g/dL (6.4-8.2); Vitamin B12 1078 pg/mL (193-986)
[2025-04-09 08:06] LABS: Transferrin 206 mg/dL (201-352)
== END 2025-04-08 04:35 | disposition home or self-care (01) ==
LOC: LOS 04:34
PROVIDERS: PCP Family Medicine; Visit Provider Nurse Practitioner Family
DX: D50.9 Iron deficiency anemia, unspecified (principal); R63.5 Abnormal weight gain
CPT/HCPCS: 36415; 80053; 82607; 82728; 83540; 83550; 84439; 84443; 84466; 85025

== ENCOUNTER 2025-06-01 16:04 | Outpatient (REF) | payer MEDICARE, SELFPAY ==
--- NOTE | 2025-06-01 11:45 | SKI_PTH ---
PATIENT: Dickson Hansen LOC: [facility] U#:[id number] AGE/SX: 89/M ROOM: RE06/01/[address]: Jerome Smith MD : [id number] BED: DIS: 06/01/2025 SPEC #: [id number] RECD: 06/01/25 16:56 STATUS: CLINT REEssence #: [id number] ZIA: 06/01/25 11:[address]: Jerome Smith DEPT: Surgical Specimen RECD BY: Susan Newman ENTERED: 06/01/25 16:56 SP TYPE: DARLING WINTER DR: Osvaldo Coles MD Tissues: 1 - SKIN BIOPSY(SHAVE/PUNCH) Procedures: SKIN LEVEL 4 Comments: [id number]
== END 2025-06-01 16:05 | disposition home or self-care (01) ==
LOC: LBN 16:04
PROVIDERS: PCP Family Medicine; Visit Provider Otolaryngology
DX: C44.319 Basal cell carcinoma of skin of other parts of face (principal)
CPT/HCPCS: 88305

== ENCOUNTER 2025-09-11 18:27 | Outpatient (CLI) | payer MEDICARE, SELFPAY | END 2025-09-11 18:28 | disposition home or self-care (01) | LOC: LBN 18:27 | PROVIDERS: PCP Family Medicine; Visit Provider Family Medicine | DX: N39.0 Urinary tract infection, site not specified (principal) | CPT/HCPCS: 87086 ==